=== PATIENT | female | born 1980 ===

== ENCOUNTER 2025-09-19 11:15 | Inpatient (IN) | payer OTHER ==
[~2025-09-19] VITALS: Ht 157.5 cm; Wt 90.7 kg
[2025-09-19] MEDS ORDERED: PAXIL20 MG PO (13:23)
[2025-09-19] MEDS ORDERED: ALPRAZOLAM OD0.25 MG PO (13:23)
[2025-09-19 13:24] VITALS: BP 139/85
[2025-09-25] MEDS ORDERED: CEFAZOLIN SODIUM 1,000 MG VIAL ONE (06:06)
[2025-09-25] MEDS ORDERED: CEFAZOLIN SODIUM 1,000 MG VIAL IV ONE (08:15)
[2025-09-25] MEDS ORDERED: hydrALAZINE HCL 20 MG VIAL ONE (09:10)
[2025-09-25] MEDS ORDERED: RINGERS SOLUTION,LACTATED 1,000 ML IV SCH (09:45)
[2025-09-25] MEDS ORDERED: ONDANSETRON HCL 2 MG/ML VIAL IV PRN (09:45)
[2025-09-25] MEDS ORDERED: ONDANSETRON HCL 2 MG/ML VIAL ONE (10:16)
[2025-09-25] MEDS ORDERED: CEFAZOLIN SODIUM 1,000 MG VIAL IV SCH (12:00)
[2025-09-25 13:50] LABS: BASO % 0.1 % (0.1-1.2); EOS # 0.00 (0.04-0.54); EOS % 0.0 % (0.7-7.0); LYMPH # 0.49 (1.18-3.74); LYMPH % 3.6 % (19.3-53.1); MEAN PLATELET VOLUME 10.20 fl (9.4-12.4); MONO # 0.73 (0.24-0.82); MONO % 5.4 % (4.7-12.5); NEUT # 12.30 (1.56-6.13); NEUT % 90.5 % (34.0-71.1); RED CELL DISTRIBUTION WIDTH 13.0 % (11.6-14.4)
[2025-09-25 14:02] VITALS: BP 129/77
[2025-09-25] MEDS ORDERED: MORPHINE SULFATE 4 MG/ML CARTRIDGE IV PRN (14:30)
[2025-09-25] MEDS ORDERED: MORPHINE SULFATE 2 MG,MORPHINE SULFATE 4 MG IV PRN (15:15)
[2025-09-25 16:00] VITALS: BP 130/70
[2025-09-25] MEDS ORDERED: OxyCODONE HCL 5 MG TABLET (ROXICODONE) PO PRN (19:30)
[2025-09-25] MEDS ORDERED: KETOROLAC TROMETHAMINE 30 MG VIAL IV NR (19:30)
[2025-09-25 20:31] VITALS: BP 129/67
[2025-09-26 00:02] VITALS: BP 139/60
[2025-09-26 08:00] VITALS: BP 137/83
[2025-09-26] MEDS ORDERED: ENOXAPARIN SODIUM 40 MG/0.4 ML SYRINGE SUBCUTANEO SCH (09:00)
[2025-09-26 15:42] VITALS: BP 130/76
[2025-09-27 00:56] VITALS: BP 124/74
[2025-09-27] MEDS ORDERED: OXYCODONE HCL5 MG PO (07:19)
[2025-09-27 08:47] VITALS: BP 147/87
== END 2025-09-27 09:36 | disposition home or self-care (01) | DRG 743 ==
LOC: O/R 09-25 06:00 → OB/GYN 09-25 06:00 → SURH 09-25 11:15 → OB/GYN 09-25 12:52
PROVIDERS: ADMIT Obstetrics & Gynecology Gynecology; ATTEND Obstetrics & Gynecology Gynecology
PROC: 0UT70ZZ Resection of Bilateral Fallopian Tubes, Open Approach (ICD-10-PCS; 2025-09-25)
PROC: 0UT90ZZ Resection of Uterus, Open Approach (ICD-10-PCS; principal; 2025-09-25 11:45)
DX: D25.1 Intramural leiomyoma of uterus (principal); D25.0 Submucous leiomyoma of uterus